=== PATIENT | male | born 1935 | race Caucasian/White ===

== ENCOUNTER 2017-12-12 09:04 | Observation (INO) ==
[2017-12-12] MEDS ORDERED: HALOPERIDOL 5 MG/ML INJECTION IVP ONE (09:11)
[2017-12-12] MEDS: SALINE FLUSH 10ml SYRINGE IVF PRN ×4 (09:14→11:54)
--- NOTE | 2017-12-12 09:30 | Emergency Department Report ---
General Adult HPI - General Chief complaint: Medical Emergency Stated complaint: Combative, diabetic Time Seen by Provider: 12/12/17 09:11 - History of Present Illness HPI narrative: 82-year-old gentleman brought in with acute confusion and delirium. He was initially diagnosis hypoglycemic with a blood sugar of 64 and EMS was given permission to supplement with 1 amp of D50 IV. Blood sugar increased to 230 but his behavior did not improve. On arrival to the ED he is strapped down and thrashing in the gurney. He is unaware of where he is or what is being done for him. No recent history is available and patient is unable to cooperate with us when we ask questions. He has had history of hypoglycemia, was never been combative with it. No fevers or chills, did not act sick previous to this according to his . - Related Data Home Medications Medication Instructions Recorded Confirmed sotalol 80 mg tablet 80 mg PO BID tab 06/23/17 12/12/17 Lisinopril [Prinivil] 20 mg PO BID 12/12/17 12/12/17 Metoprolol Tartrate 100 mg PO BID 12/12/17 12/12/17 Quetiapine [Seroquel] 50 mg PO HS 12/12/17 12/12/17 Previous Rx's Medication Instructions Recorded Calcitonin Nasal [place] [Miacalcin 1 spray NS DAILY bottle 12/14/17 [place]] Insulin Aspart [Novolog Flexpen] 1 dose SQ TIDWM #0 12/14/17 Insulin Glargine,Hum.rec.anlog 80 unit SQ HS #0 ml 12/14/17 [Toujeo Solostar] Levothyroxine Tab [Synthroid] 137 mcg PO ACB #30 tab 12/14/17 Simvastatin 40 mg PO HS #0 12/14/17 Allergies Allergy/AdvReac Type Severity Reaction Status Date / Time niacin Allergy Unknown RASH Verified 12/12/17 09:49 tramadol AdvReac Severe Delirium Verified 12/13/17 15:53 Review of Systems Limitations: ROS unobtainable due to patient's medical condition [facility] Patient Stated Medical History Hypertension Yes Myocardial Infarction No Diabetes Mellitus Type 1 No Diabetes Mellitus Type 2 Yes Gastroesophageal Reflux Yes Disease Ulcer Yes Clinic Medical History (Last Reviewed 10/21/17 @ 09:12 by SARAY Donovan) Diabetes mellitus type 2, controlled (Chronic Medical ~1996) Good control with some hypoglycemia. Diabetic peripheral neuropathy associated with type 2 diabetes mellitus ( Chronic Medical) Mild and improved. CKD (chronic kidney disease) stage 3, GFR 30-59 ml/min (Chronic Medical) Hyperlipidemia LDL goal <100 (Chronic Medical) on Zocor per Dr. Jensen. Hypertension (Chronic Medical) Good control. Postsurgical hypothyroidism (Chronic Medical ~2009) Clinically euthyroid. Need to reassess low thyroid hormone level. Obesity (BMI 30-39.9) (Chronic Medical) Little better. Surgical History: cholecystectomy, heart stent, pacemaker, colon surgery, prostate surgery, thyroidectomy Family History: Family History (Last Reviewed 10/21/17 @ 09:12 by Sendy Wells [facility]) Mother High blood pressure Father Heart disease Stroke - Social History Smoking status: Former smoker Substance use type: does not use Alcohol intake: former Physical Exam - Limitations Limitations: altered mental status - General General appearance: anxious, in distress - Normal Exams: Head:: Normocephalic without trauma Chest/Respirations:: Clear all reyna, with good airflow, and symmetry bilaterally Cardiovascular:: Regular rate and rhythm, without murmur or gallop, Pulses 2+ all extremities, capillary refill, <2 seconds all extremities Abdomen:: Bowel sounds positive, soft, non-tender, non-distended, no hepatosplenomegaly, masses or bruits noted - Neurological Exam Neurological exam: Present: other (patient alert, but oriented 0. Aggressive and kicking. This is not aimed at anyone in particular.) Course Vital Signs Temperature 98.2 F 12/12/17 09:04 Pulse Rate 135 H 12/12/17 09:04 Respiratory Rate 34 H 12/12/17 09:04 Blood Pressure 122/86 12/12/17 09:04 Pulse Oximetry 99 12/12/17 09:04 Temperature 96.5 F L 12/14/17 07:53 Pulse Rate 78 12/14/17 09:06 Respiratory Rate 26 H 12/14/17 07:53 Blood Pressure 163/84 H 12/14/17 07:53 Pulse Oximetry 97 12/14/17 07:53 Medical Decision Making - MDM Narrative Medical decision making narrative: Peripheral IV was started prior to arrival, patient was given 1 amp of dextrose at home by EMS. Glucose did improve with his first dose, however on arrival to ED it did not stay above 100. He did require a second amp of D50 as well as D5 IV fluid. Labs obtained as well as blood cultures and CT head and chest x-ray. CT head and chest x-ray negative. 2 mg Ativan and 5 mg of Haldol given IV, patient continued to be combative despite this. He was given a repeat of 2 mg Ativan which did help. At time of CT head, he required ketamine total of 150 g was given. This did sedate him well enough that we're able to get reasonable CT head. Patient required 4. restraints for his own safety and to keep him from falling out of bed or being otherwise injured. These were checked carefully ensuring patient had appropriate circulation and no damage was being done to him. White count is 12.1, sodium 147 and creatinine 1.8. Total osmolality was also elevated. Shop Lead should have accounted for his mental status changes , we did contact hospitalist. Hospice agreed to admit him for continued care and workup in regards to encephalopathy, hypernatremia, renal insufficiency and hypoglycemia - Medical Records Medical records reviewed: Yes: I reviewed the patient's medical records. - Lab Data Lab results reviewed: Yes: I reviewed the patient's lab results. Result diagrams: 12/14/17 04:23 12/14/17 04:23 Lab Results 12/12/17 12/12/17 12/12/17 Range/Units 09:21 09:50 10:34 WBC 12.1 H (4.5-11.0) T/MM3 RBC 5.04 (4.50-5.90) M/MM3 Hgb 15.6 (13.5-17.5) GM/DL Hct 46.7 (41-53) % MCV 92.7 (80-100) UM3 MCH 31.0 (26-34) UUG MCHC 33.4 (31-37) GM/DL RDW Std Deviation 46.1 (36.9-50.2) FL Plt Count 156 (130-400) T/MM3 MPV 11.7 (9.4-12.4) UM3 Immature Gran % (Auto) 0.2 (0.0-0.5) % Neut % (Auto) 71.4 H (33-66) % Lymph % (Auto) 18.1 L (23-45) % [place] % (Auto) 8.9 (0-9.0) % Eos % (Auto) 1.2 (0-4) % Baso % (Auto) 0.2 (0-2) % Neut # (Auto) 8.6 H (1.8-7.7) T/MM3 Lymph # (Auto) 2.2 (1-4.8) T/MM3 [place] # (Auto) 1.1 H (0-0.8) T/MM3 Eos # (Auto) 0.1 (0-0.5) T/MM3 Baso # (Auto) 0.0 (0-0.2) T/MM3 Abs Immat Gran (auto) 0.03 (0.00-0.03) T/MM3 Turbidity (0-20) Sodium (134-144) MEQ/L Potassium (3.6-5) MEQ/L Chloride (98-107) MEQ/L Carbon Dioxide (22-30) MEQ/L Anion Gap (5-15) MEQ/L BUN (9-20) MG/DL Creatinine (0.8-1.5) mg/dL GFR Calculation BUN/Creatinine Ratio (6-26) RATIO Glucose (75-110) MG/DL Glucometer 138 153 (65-110) mg/dL Calculated Osmolality (261-280) MOSM/KG Calcium (8.4-10.2) MG/DL Total Bilirubin (0.20-1.30) MG/DL Icterus Index (0-7) AST (17-59) U/L ALT (1-50) U/L Alkaline Phosphatase (38-126) U/L Ammonia (9-33) umol/L Troponin I (0-0.12) ng/ml Total Protein (6.3-8.2) g/dL Albumin (3.5-5.0) g/dL Globulin (2.4-3.6) G/DL Albumin/Globulin Ratio (1.1-2.2) RATIO TSH (0.47-4.68) miu/L Specimen Hemolysis (0-25) Ur Collection Type Urine Color (YELLOW) Urine Clarity Urine pH (5.0-8.0) Ur Specific [place] (1.015-1.025) Urine Protein (NEGATIVE) Urine Glucose (UA) (NEGATIVE) Urine Ketones (NEGATIVE) Urine Occult Blood (NEGATIVE) Urine Nitrate (NEGATIVE) Urine Bilirubin (NEGATIVE) Urine Urobilinogen (NORMAL) EU/DL Ur Leukocyte Esterase (NEGATIVE) Urine RBC (0-3) /HPF Urine WBC (0-5) /HPF Amorphous Sediment Urine Bacteria (NEGATIVE) Hyaline Casts /LPF Ur Culture Indicated? Salicylates (2-20) MG/DL Urine Opiates Screen ng/mL Ur Oxycodone Screen ng/mL Urine Methadone Screen ng/mL Ur Propoxyphene Screen ng/mL Acetaminophen (10-30) UG/ML Ur Barbiturates Screen ng/mL U Tricyclic Antidepress ng/mL Ur Phencyclidine Scrn ng/mL Ur Amphetamines Screen ng/mL U Methamphetamines Scrn ng/mL U Benzodiazepines Scrn ng/mL Urine Cocaine Screen ng/mL U Cannabinoids Screen ng/mL Ur Drug Screen Confirm Alcohol, Quantitative (<10) mg/dL 12/12/17 12/12/17 12/12/17 Range/Units 10:34 11:06 12:19 WBC (4.5-11.0) T/MM3 RBC (4.50-5.90) M/MM3 Hgb (13.5-17.5) GM/DL Hct (41-53) % MCV (80-100) UM3 MCH (26-34) UUG MCHC (31-37) GM/DL RDW Std Deviation (36.9-50.2) FL Plt Count (130-400) T/MM3 MPV (9.4-12.4) UM3 Immature Gran % (Auto) (0.0-0.5) % Neut % (Auto) (33-66) % Lymph % (Auto) (23-45) % [place] % (Auto) (0-9.0) % Eos % (Auto) (0-4) % Baso % (Auto) (0-2) % Neut # (Auto) (1.8-7.7) T/MM3 Lymph # (Auto) (1-4.8) T/MM3 [place] # (Auto) (0-0.8) T/MM3 Eos # (Auto) (0-0.5) T/MM3 Baso # (Auto) (0-0.2) T/MM3 Abs Immat Gran (auto) (0.00-0.03) T/MM3 Turbidity < 20 (0-20) Sodium 147 H (134-144) MEQ/L Potassium 3.9 (3.6-5) MEQ/L Chloride 111 H (98-107) MEQ/L Carbon Dioxide 21 L (22-30) MEQ/L Anion Gap 15 (5-15) MEQ/L BUN 20.0 (9-20) MG/DL Creatinine 1.8 H (0.8-1.5) mg/dL GFR Calculation 36 BUN/Creatinine Ratio 11 (6-26) RATIO Glucose 119 H (75-110) MG/DL Glucometer 97 (65-110) mg/dL Calculated Osmolality 286 H (261-280) MOSM/KG Calcium 8.9 (8.4-10.2) MG/DL Total Bilirubin 2.70 H (0.20-1.30) MG/DL Icterus Index < 2 (0-7) AST 35 (17-59) U/L ALT 25 (1-50) U/L Alkaline Phosphatase 81 (38-126) U/L Ammonia < 9 L (9-33) umol/L Troponin I 0.025 (0-0.12) ng/ml Total Protein 7.3 (6.3-8.2) g/dL Albumin 4.1 (3.5-5.0) g/dL Globulin 3.2 (2.4-3.6) G/DL Albumin/Globulin Ratio 1.3 (1.1-2.2) RATIO TSH 5.07 H (0.47-4.68) miu/L Specimen Hemolysis < 15 (0-25) Ur Collection Type Urine, cath straight Urine Color Yellow (YELLOW) Urine Clarity Clear Urine pH 5.0 (5.0-8.0) Ur Specific [place] >=1.030 H (1.015-1.025) Urine Protein 2+ A (NEGATIVE) Urine Glucose (UA) Negative (NEGATIVE) Urine Ketones Negative (NEGATIVE) Urine Occult Blood Trace-lysed (NEGATIVE) Urine Nitrate Negative (NEGATIVE) Urine Bilirubin Negative (NEGATIVE) Urine Urobilinogen 0.2 (NORMAL) EU/DL Ur Leukocyte Esterase Negative (NEGATIVE) Urine RBC 0-1 (0-3) /HPF Urine WBC 0-1 (0-5) /HPF Amorphous Sediment Few Urine Bacteria Trace H (NEGATIVE) Hyaline Casts 0-1 /LPF Ur Culture Indicated? Cult not indicated Salicylates < 1.0 L (2-20) MG/DL Urine Opiates Screen ng/mL Ur Oxycodone Screen ng/mL Urine Methadone Screen ng/mL Ur Propoxyphene Screen ng/mL Acetaminophen < 10 L (10-30) UG/ML Ur Barbiturates Screen ng/mL U Tricyclic Antidepress ng/mL Ur Phencyclidine Scrn ng/mL Ur Amphetamines Screen ng/mL U Methamphetamines Scrn ng/mL U Benzodiazepines Scrn ng/mL Urine Cocaine Screen ng/mL U Cannabinoids Screen ng/mL Ur Drug Screen Confirm Alcohol, Quantitative <10 (<10) mg/dL 12/12/17 12/12/17 12/12/17 Range/Units 12:19 12:19 12:48 WBC (4.5-11.0) T/MM3 RBC (4.50-5.90) M/MM3 Hgb (13.5-17.5) GM/DL Hct (41-53) % MCV (80-100) UM3 MCH (26-34) UUG MCHC (31-37) GM/DL RDW Std Deviation (36.9-50.2) FL Plt Count (130-400) T/MM3 MPV (9.4-12.4) UM3 Immature Gran % (Auto) (0.0-0.5) % Neut % (Auto) (33-66) % Lymph % (Auto) (23-45) % [place] % (Auto) (0-9.0) % Eos % (Auto) (0-4) % Baso % (Auto) (0-2) % Neut # (Auto) (1.8-7.7) T/MM3 Lymph # (Auto) (1-4.8) T/MM3 [place] # (Auto) (0-0.8) T/MM3 Eos # (Auto) (0-0.5) T/MM3 Baso # (Auto) (0-0.2) T/MM3 Abs Immat Gran (auto) (0.00-0.03) T/MM3 Turbidity (0-20) Sodium (134-144) MEQ/L Potassium (3.6-5) MEQ/L Chloride (98-107) MEQ/L Carbon Dioxide (22-30) MEQ/L Anion Gap (5-15) MEQ/L BUN (9-20) MG/DL Creatinine (0.8-1.5) mg/dL GFR Calculation BUN/Creatinine Ratio (6-26) RATIO Glucose (75-110) MG/DL Glucometer 64 (65-110) mg/dL Calculated Osmolality (261-280) MOSM/KG Calcium (8.4-10.2) MG/DL Total Bilirubin (0.20-1.30) MG/DL Icterus Index (0-7) AST (17-59) U/L ALT (1-50) U/L Alkaline Phosphatase (38-126) U/L Ammonia (9-33) umol/L Troponin I (0-0.12) ng/ml Total Protein (6.3-8.2) g/dL Albumin (3.5-5.0) g/dL Globulin (2.4-3.6) G/DL Albumin/Globulin Ratio (1.1-2.2) RATIO TSH (0.47-4.68) miu/L Specimen Hemolysis (0-25) Ur Collection Type Urine Color (YELLOW) Urine Clarity Urine pH (5.0-8.0) Ur Specific [place] (1.015-1.025) Urine Protein (NEGATIVE) Urine Glucose (UA) (NEGATIVE) Urine Ketones (NEGATIVE) Urine Occult Blood (NEGATIVE) Urine Nitrate (NEGATIVE) Urine Bilirubin (NEGATIVE) Urine Urobilinogen (NORMAL) EU/DL Ur Leukocyte Esterase (NEGATIVE) Urine RBC (0-3) /HPF Urine WBC (0-5) /HPF Amorphous Sediment Urine Bacteria (NEGATIVE) Hyaline Casts /LPF Ur Culture Indicated? Salicylates (2-20) MG/DL Urine Opiates Screen Positive ng/mL Ur Oxycodone Screen Negative ng/mL Urine Methadone Screen Negative ng/mL Ur Propoxyphene Screen Negative ng/mL Acetaminophen (10-30) UG/ML Ur Barbiturates Screen Negative ng/mL U Tricyclic Antidepress Positive ng/mL Ur Phencyclidine Scrn Negative ng/mL Ur Amphetamines Screen Negative ng/mL U Methamphetamines Scrn Negative ng/mL U Benzodiazepines Scrn Negative ng/mL Urine Cocaine Screen Negative ng/mL U Cannabinoids Screen Negative ng/mL Ur Drug Screen Confirm Sent out Alcohol, Quantitative (<10) mg/dL 12/12/17 12/12/17 12/12/17 Range/Units 13:22 13:45 14:08 WBC (4.5-11.0) T/MM3 RBC (4.50-5.90) M/MM3 Hgb (13.5-17.5) GM/DL Hct (41-53) % MCV (80-100) UM3 MCH (26-34) UUG MCHC (31-37) GM/DL RDW Std Deviation (36.9-50.2) FL Plt Count (130-400) T/MM3 MPV (9.4-12.4) UM3 Immature Gran % (Auto) (0.0-0.5) % Neut % (Auto) (33-66) % Lymph % (Auto) (23-45) % [place] % (Auto) (0-9.0) % Eos % (Auto) (0-4) % Baso % (Auto) (0-2) % Neut # (Auto) (1.8-7.7) T/MM3 Lymph # (Auto) (1-4.8) T/MM3 [place] # (Auto) (0-0.8) T/MM3 Eos # (Auto) (0-0.5) T/MM3 Baso # (Auto) (0-0.2) T/MM3 Abs Immat Gran (auto) (0.00-0.03) T/MM3 Turbidity (0-20) Sodium (134-144) MEQ/L Potassium (3.6-5) MEQ/L Chloride (98-107) MEQ/L Carbon Dioxide (22-30) MEQ/L Anion Gap (5-15) MEQ/L BUN (9-20) MG/DL Creatinine (0.8-1.5) mg/dL GFR Calculation BUN/Creatinine Ratio (6-26) RATIO Glucose (75-110) MG/DL Glucometer 58 59 138 (65-110) mg/dL Calculated Osmolality (261-280) MOSM/KG Calcium (8.4-10.2) MG/DL Total Bilirubin (0.20-1.30) MG/DL Icterus Index (0-7) AST (17-59) U/L ALT (1-50) U/L Alkaline Phosphatase (38-126) U/L Ammonia (9-33) umol/L Troponin I (0-0.12) ng/ml Total Protein (6.3-8.2) g/dL Albumin (3.5-5.0) g/dL Globulin (2.4-3.6) G/DL Albumin/Globulin Ratio (1.1-2.2) RATIO TSH (0.47-4.68) miu/L Specimen Hemolysis (0-25) Ur Collection Type Urine Color (YELLOW) Urine Clarity Urine pH (5.0-8.0) Ur Specific [place] (1.015-1.025) Urine Protein (NEGATIVE) Urine Glucose (UA) (NEGATIVE) Urine Ketones (NEGATIVE) Urine Occult Blood (NEGATIVE) Urine Nitrate (NEGATIVE) Urine Bilirubin (NEGATIVE) Urine Urobilinogen (NORMAL) EU/DL Ur Leukocyte Esterase (NEGATIVE) Urine RBC (0-3) /HPF Urine WBC (0-5) /HPF Amorphous Sediment Urine Bacteria (NEGATIVE) Hyaline Casts /LPF Ur Culture Indicated? Salicylates (2-20) MG/DL Urine Opiates Screen ng/mL Ur Oxycodone Screen ng/mL Urine Methadone Screen ng/mL Ur Propoxyphene Screen ng/mL Acetaminophen (10-30) UG/ML Ur Barbiturates Screen ng/mL U Tricyclic Antidepress ng/mL Ur Phencyclidine Scrn ng/mL Ur Amphetamines Screen ng/mL U Methamphetamines Scrn ng/mL U Benzodiazepines Scrn ng/mL Urine Cocaine Screen ng/mL U Cannabinoids Screen ng/mL Ur Drug Screen Confirm Alcohol, Quantitative (<10) mg/dL - Radiology Data Radiology results reviewed: Yes: I reviewed the patient's radiology results. Disposition Clinical Impression: HYPOGLYCEMIA Disposition: 02 To [facility] Condition: Stable Time of Disposition: 08:05 - Seen By: physician
[2017-12-12] MEDS ORDERED: MORPHINE SULFATE 2mg INJ IVP ONE (10:21)
[2017-12-12] MEDS ORDERED: MORPHINE SULFATE 4mg INJECTION IVP ONE (10:45)
[2017-12-12] MEDS ORDERED: KETAMINE 500 MG/10 ML INJECTION IVP ONE (11:23)
[2017-12-12] MEDS ORDERED: HALOPERIDOL 5 MG/ML INJECTION IVP PRN ×2 (11:23→15:22)
[2017-12-12] MEDS ORDERED: NS 1,000 ML IV ONE (12:21)
[2017-12-12] MEDS ORDERED: D5NS 1,000 ML IV SCH (13:00)
[2017-12-12] MEDS ORDERED: DEXTROSE 50% SYRINGE 50ml (1 AMP) IVP ONE (13:46)
[2017-12-12] MEDS: ENOXAPARIN 40 MG/0.4 ML INJECTION SQ SCH (15:15)
[2017-12-12] MEDS ORDERED: 1/2 NS 1,000 ML IV SCH (15:22)
[2017-12-12] MEDS ORDERED: BISACODYL 10 MG SUPPOSITORY RECTALLY PRN (15:22)
[2017-12-12] MEDS ORDERED: ACETAMINOPHEN 325 MG TABLET PO PRN (15:22)
[2017-12-12 15:34] VITALS: BMI 33.7
--- NOTE | 2017-12-12 15:50 | History & Physical Report ---
History of Present Illness Date: 12/12/17 Chief complaint: acute encephalopathy HPI: Drake is an 82-year-old male who resides independently at home with his , Basilia. This morning at approximately 830 a.m. she found him to be standing in the room, confused and unable to answer verbal questioning. She was concerned that he was hypoglycemic and called EMS, they found patient to have a blood sugar of 64. EMS gave patient one amp of dextrose blood sugar improved to 233, however patient remained combative. He was then transferred to [facility] emergency room for further medical evaluation and treatment. Laboratory studies were obtained, patient found have mild leukocytosis with white count at 12.1. Chemistry panel reviewed hypernatremia, sodium of 147, potassium 3.9, creatinine 1.8. While in the emergency room. Glucose did dip down to 58 and patient received another amp of dextrose. Troponin was negative, TSH 5.04. Urinalysis is unremarkable. Toxicology is positive for opiates and tricyclic antidepressants. CT scan of the head showed no intracranial abnormalities or hemorrhages, chest x-ray is unremarkable Patient received multiple medications well in the emergency room including Ativan 4 milligrams, Haldol 2 milligrams, morphine 2 milligrams, ketamine 100 milligrams. Given continued encephalopathy and combativeness , the hospitalist services were contacted and accepted patient for outpatient admission for further evaluation and treatment. Additional history is obtained from at the bedside. She does report that patient has had difficulty with managing his blood sugars over the last week or 2 having hypoglycemia at times. Last Thursday (12/07/17) during the night he fell and has complained of low back pain since that time. He did have outpatient x- rays done yesterday that revealed a T12 - L2 compression fracture. He was started on tramadol for pain control by primary care, Dr. Aguayo. thinks that patient took 2 tablets for pain control since having them filled yesterday. Patient is normally alert, oriented and manages all his own medications at home, is in clear of what medications he takes and for what chronic problems. reports he does have some "mood swings" and she does relate this to potential hypoglycemic episodes. We did discuss advanced directives and patient does wish to be a full code unless he would be in a vegetative state at which time she would opt for him to be a do not resuscitate Review of Systems ROS unobtainable: due to mental status Past Medical History Clinic Medical History Type II diabetes. Peripheral neuropathy. Chronic kidney disease-stage III Hypertension Hyperlipidemia Keratosis Postsurgical hypothyroidism History of prostate cancer History of colon cancer. Surgical History: cholecystectomy -1997. heart stent. pacemaker 2004-Dr. Jensen. thyroidectomy-2009. TURP-2012. Right [id number] Family History Updates: Mother. High blood pressure. Father. Heart disease. 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 Medications Home Medications Medication Instructions Recorded Confirmed Type Toujeo Solostar (insulin glargine) 100 unit SQ HS ml 06/23/17 12/12/17 History 300 unit/mL (1.5 mL) SQ PEN saxagliptin 2.5 mg tablet 2.5 mg PO QAM 06/23/17 12/12/17 History sotalol 80 mg tablet 80 mg PO BID tab 06/23/17 12/12/17 History levothyroxine 125 mcg tablet 125 mcg PO QAM #90 tab 07/06/17 12/12/17 Rx Novolog FlexPen (insulin aspart) 1 dose SQ TIDWM 10/21/17 12/12/17 History 100 unit/mL PEN Lisinopril [Prinivil] 20 mg PO BID 12/12/17 12/12/17 History Metoprolol Tartrate [Metoprolol 100 mg PO BID 12/12/17 12/12/17 History Tartrate] Quetiapine [Seroquel] 50 mg PO HS 12/12/17 12/12/17 History Simvastatin [Simvastatin] 40 mg PO DAILY 12/12/17 12/12/17 History Tramadol [Ultram] 50 mg PO Q6H PRN 12/12/17 12/12/17 History Allergies Allergy/AdvReac Type Severity Reaction Status Date / Time niacin Allergy Unknown RASH Verified 12/12/17 09:49 Exam Vital Signs: Temperature 96 F L 12/12/17 15:22 Pulse Rate 84 12/12/17 15:22 Respiratory Rate 16 12/12/17 15:22 Blood Pressure 153/70 H 12/12/17 15:22 Pulse Oximetry 94 12/12/17 15:22 Height/Weight/BMI: Height 1.78 m Weight 106.7 kg Body Mass Index 33.7 - Constitutional Present: well nourished, well developed, combative, agitated - Routine HEENT Exam Eye: Present: EOMI ENT: Present: mucous membranes moist, dentition normal - Routine Respiratory Exam Present: CTA bilaterally. Absent: wheezes - Routine Cardiovascular Exam Present: RRR, S1, S2. Absent: murmur - Routine Abdominal Exam Present: soft, normoactive bowel sounds, non distended. Absent: tenderness - Routine Extremities Exam Present: edema - Routine Back/Spine/Pelvis Exam Back/Spine: Present: full ROM - Routine Skin Exam Present: intact, dry, warm Comments: Ecchymosis noted to right shoulder, left hand and forearm - Routine Neurological Exam Present: alert, CN II-XII intact, altered mental status, moving all extremities - Routine Psychiatric Exam Present: agitated Results - Labs CBC & Chem 7: 12/12/17 10:34 12/12/17 10:34 Assessment and Plan (1) Encephalopathy Current visit: Yes Status: Acute Assessment and Plan: Impression Acute encephalopathy with unknown etiology Hypoglycemia Hypernatremia (POA) Recent fall T12-L2 compression fracture Type II diabetes Coronary artery disease Hypertension Dyslipidemia Stage III CKD Keratosis Obesity with BMI 33.8 Plan Initially, will admit patient outpatient observation under care of Dr. Slaughter for acute encephalopathy with unknown etiology. Suspect etiology could be multifactorial. May be related to dehydration, initiation of pain medication as patient did start tramadol yesterday 12/11 for back pain. It is unclear if patient has been taking his medications accurately. May be related to underlying cognitive decline. Will plan to hold off on Onglyza as this may be causing hypoglycemia. Also hold on insulin. Will monitor Accu-Cheks closely. At time of admission patient continues to be quite combative during examination and nursing cares. Haldol and Ativan available as needed. Suspect he will require one-on-one staffing for patient safety. Unfortunately, we are unable to obtain an MRI of the brain to rule out intracranial infarct given. Patient does have a pacemaker. Once further medical rule out has been completed. May need to consider obtaining durable power of medical billing supervisor which is . Will hold off Ultram as this may be causing Encephalopathy. SCDs to bilateral lower extremity for DVT prophylaxis. Will check CBC, BMP, hemoglobin A1c tomorrow morning to follow blood counts, renal function and electrolytes. Will discuss further orders and plan of care with attending, Dr. Slaughter. At time of discharge medical care will return to primary care provider, Dr Aguayo. DVT Prophylaxis: SCD's Resuscitation Status: Full Code - Time spent with patient Time with patient PN: 50 minutes - Physician Narrative Physician: Arden Slaughter MD Narrative: Date: 12/12/17 Time: 1654 Have independently interviewed and examined pt. Chart reviewed. Case discussed with ED physician and my ARCHITECTURAL PROJECT MANAGER. Care plan developed with my supervision; agree with above. Presents to ED via EMS secondary to alteration of mentation. Increase confusion this am. Blood sugar low on scene by EMS. In ED, patient very restless and agitated-required multiple doses of medication to calm him down. Does have Type II DM on insulin at high doses. Recent back injury and started on tramadol. At time of my visit, pt resting comfortably in bed. Little verbal interaction. Nursing reports pt had just been up to urinate-he needed to urinate, but not able to produce urine. Gait was unsteady, requiring gait belt. Lung: decreased, no crackles/wheezes/distress CV: regular EXT: no edema. Plan: OBS status. Hold on glycemic medications do to significant hypoglycemia. Hold tramadol as may be source of encephalopathy. D51/2NS for hydration and to help with blood sugars. Monitor sugars closely. Haldol/lorazepam prn. Provide safe supportive environment. Monitor lab. Multiple factors could be contributing to encephalopathy - low blood sugars, elevated serum sodium, tramadol use. Hospital Course Summary Disclaimer: The visit summary below is not to be considered part of the above Progress Note. Hospital Course: 12/12/[address] patient in outpatient observation under care of Dr. Slaughter for acute encephalopathy with unknown etiology. Suspect etiology could be multifactorial. May be related to dehydration, initiation of pain medication as patient did start tramadol yesterday 12/11 for back pain. It is unclear if patient has been taking his medications accurately. May be related to underlying cognitive decline. Will plan to hold off on Onglyza as this may be causing hypoglycemia. Also hold on insulin. Will monitor Accu-Cheks closely. At time of admission patient continues to be quite combative during examination and nursing cares. Haldol and Ativan available as needed. Suspect he will require one-on-one staffing for patient safety. Unfortunately, we are unable to obtain an MRI of the brain to rule out intracranial infarct given. Patient does have a pacemaker. Once further medical rule out has been completed. May need to consider obtaining durable power of medical billing supervisor which is . Will hold off Ultram as this may be causing encephalopathy. SCDs to bilateral lower extremity for DVT prophylaxis. Will check CBC, BMP, hemoglobin A1c tomorrow morning to follow blood counts, renal function and electrolytes. At time of discharge medical care will return to primary care provider, Dr Aguayo.
[2017-12-12] MEDS ORDERED: DEXTROSE 50% SYRINGE 50ml (1 AMP) IVP PRN (16:14)
[2017-12-12] MEDS: D5-1/2NS 1,000 ML IV SCH (17:03)
[2017-12-12] MEDS: SOTALOL 80 MG PO SCH (22:26)
[2017-12-12] MEDS: --POM--QUETIAPINE 50 MG TABLET PO SCH (22:26)
[2017-12-12] MEDS: --POM--LISINOPRIL 20 MG TABLET PO SCH (22:26)
[2017-12-13] MEDS: D5-1/2NS 1,000 ML IV SCH ×4 (00:14→23:57)
[2017-12-13] MEDS ORDERED: VANCOMYCIN - PHARMACY CONSULT MC ONE (06:02)
[2017-12-13] MEDS: --POM--SIMVASTATIN 40 MG TABLET PO SCH ×2 (06:42→20:57)
[2017-12-13] MEDS: --POM--LEVOTHYROXINE 125 MCG TABLET PO SCH (06:59)
--- NOTE | 2017-12-13 07:10 | Pharmacy Consult-Antibiotics ---
Pharmacy Consult-Vancomycin - Laboratory Information WBC 8.4 T/MM3 (4.5-11.0) 12/13/17 05:02 BUN 18.0 MG/DL (9-20) 12/13/17 05:02 Creatinine 1.5 mg/dL (0.8-1.5) D 12/13/17 05:02 - Consult Information VANCOMYCIN CONSULT: Dx: Blood culture positive for staph Current Renal Fx: SCr = 1.5mg/dl. Loading dose of 1.75gm then give Vancomycin 1,500mg IV q24hrs. Will continue to monitor and adjust regimen to maintain therapeutic levels. Thank you.
--- NOTE | 2017-12-13 09:06 | CT Scan Report ---
Indication: confusion PROCEDURE: CT head/brain wo con: Encounter: Initial Comparison: None Technique: Axial CT images through the head were performed without contrast. Iterative Reconstruction dose reducing technique was utilized. FINDINGS: Mild generalized atrophy. The ventricles are of normal size, shape, and contour for the patient's age. There are scattered areas of low attenuation in the white matter which most likely represent changes from chronic microvascular ischemia. The brainstem, cerebellum, and cerebral hemispheres otherwise have a normal morphology and CT attenuation. There is no evidence of midline displacement. No hemorrhage, signs of acute territorial stroke, mass effect, mass lesions, or edema is evident. The visualized portions of the skull base, midface, and calvarium demonstrate no abnormality. The paranasal sinuses are well aerated and free of significant disease. The tympanic and mastoid cavities appear normal. IMPRESSION: No acute intracranial abnormality or hemorrhage. There is a preliminary report by [facility]. .
--- NOTE | 2017-12-13 09:06 | XRay Report ---
Indication: confusion PROCEDURE: XR chest 1V: Encounter: Initial Comparison: Chest CT dated May 26, 2013 FINDINGS: The lungs are clear. There is no abnormal airspace opacity, pleural effusion or pneumothorax identified. The heart size and mediastinum are stable with a left pacemaker. IMPRESSION: No acute cardiopulmonary abnormality. .
--- NOTE | 2017-12-13 09:51 | Progress Note ---
- Date 12/13/17 Subjective: Clovis is seen this morning in follow up for encephalopathy. He is alert and orientated this morning and reports that he "blacked out" yesterday. He remembers taking the second Tramadol for back pain and states he does not remember any events following that. He is without complaints of pain currently. Noted to have lots of ecchymosis on his arms from falling and aggression. Large bowel movement this morning. Objective Vital signs: Temperature 96.2 F L 12/13/17 07:17 Pulse Rate 78 12/13/17 07:17 Respiratory Rate 20 12/13/17 07:17 Blood Pressure 157/77 H 12/13/17 07:17 Pulse Oximetry 95 12/13/17 07:17 Height/Weight/BMI: Height 1.78 m Weight 108.9 kg Body Mass Index 33.7 - Constitutional Present: no acute distress, well nourished, well developed - Routine HEENT Exam Eye: Present: EOMI ENT: Present: mucous membranes moist, dentition normal - Routine Respiratory Exam Present: CTA bilaterally. Absent: wheezes - Routine Cardiovascular Exam Present: RRR, S1, S2. Absent: murmur - Routine Abdominal Exam Present: soft, normoactive bowel sounds, non distended. Absent: tenderness - Routine Extremities Exam Present: full ROM - Routine Back/Spine/Pelvis Exam Back/Spine: Present: full ROM - Routine Skin Exam Present: intact, dry, warm - Routine Neurological Exam Present: alert, oriented X3, CN II-XII intact, moving all extremities - Routine Lymphatic Exam Lymphatic: Absent: adenopathy - Routine Psychiatric Exam Present: normal affect, cooperative Results - Labs CBC & Chem 7: 12/13/17 05:02 12/13/17 05:02 Assessment and Plan (1) Encephalopathy Current visit: Yes Status: Acute Assessment and Plan: Impression Acute encephalopathy with unknown etiology Hypoglycemia Hypernatremia (POA) Hypokalemia- not POA Recent fall T12-L2 compression fracture Type II diabetes Coronary artery disease Hypertension Dyslipidemia Stage III CKD Keratosis Obesity with BMI 33.8 Plan Encephalopathy appears to be improving. Patient contributes to taking Ultram. One blood culture is growing Staph Aureus. Will re-draw blood cultures now. Was started on Vancomycin IV. Continue to avoid Ultram as it appears patient had a significant adverse reaction. Will use Tylenol for pain control Continue to monitor blood sugars as he continues to be low. Continue on D5 1/2 IV fluids. All home diabetes medications and insulin remain on hold. Encourage PO intake. Continue to follow electrolytes Overall mentation appears to be improving Case discussed with attending, Dr Slaughter DVT Prophylaxis: SCD's, Lovenox Resuscitation Status: Full Code - Time spent with patient Time with patient PN: 25 minutes - Physician Narrative Physician: Arden Slaughter MD Narrative: Date: 12/13/17 Time: 1155 Have independently interviewed and examined pt. Chart reviewed. Case discussed with CM, Family and my MACHINING MANAGER. Care plan developed with my supervision; agree with above. Doing much better today-awake, alert, communicating well. Remembers he 'blacked out' yesterday. Breathing well. No nausea. Blood sugars on low side, but not as low as on scene or in ED. Reports BS very well controlled at home-sometimes needs to decrease his insulin. Lung: clear CV: regular AB: soft nt MSE: awake alert appropriate Plan: One of two BC positive for Staph aureus - uncertain if this is truly indicative of infection--more likely contaminant; Vanco started by Telehospitalist, repeat BC drawn. Improvement of encephalopathy encouraging- suspect was combination of tramadol and hypoglycemia. Will start Miacalcin to help pain. PT/OT evaluation tomorrow to assess functional status. Will consult with Dr Mendiola in light of low sugars--home glycemic medications currently on hold. Will continue with care and monitoring. Hospital Course Summary Disclaimer: The visit summary below is not to be considered part of the above Progress Note. Hospital Course: 12/12/[address] patient in outpatient observation under care of Dr. Slaughter for acute encephalopathy with unknown etiology. Suspect etiology could be multifactorial. May be related to dehydration, initiation of pain medication as patient did start tramadol yesterday 12/11 for back pain. It is unclear if patient has been taking his medications accurately. May be related to underlying cognitive decline. Will plan to hold off on Onglyza as this may be causing hypoglycemia. Also hold on insulin. Will monitor Accu-Cheks closely. At time of admission patient continues to be quite combative during examination and nursing cares. Haldol and Ativan available as needed. Suspect he will require one-on-one staffing for patient safety. Unfortunately, we are unable to obtain an MRI of the brain to rule out intracranial infarct given. Patient does have a pacemaker. Once further medical rule out has been completed. May need to consider obtaining durable power of biotech production specialist which is . Will hold off Ultram as this may be causing encephalopathy. SCDs to bilateral lower extremity for DVT prophylaxis. Will check CBC, BMP, hemoglobin A1c tomorrow morning to follow blood counts, renal function and electrolytes. At time of discharge medical care will return to primary care provider, Dr Aguayo. 12/13/17 Encephalopathy appears to be improving. Patient contributes to taking Ultram. One blood culture is growing Staph Aureus. Will re-draw blood cultures now. Was started on Vancomycin IV. Continue to avoid Ultram as it appears patient had a significant adverse reaction. Will use Tylenol for pain control Continue to monitor blood sugars as he continues to be low. Continue on D5 1/2 IV fluids. All home diabetes medications and insulin remain on hold. Encourage PO intake. Continue to follow electrolytes Overall mentation appears to be improving
[2017-12-13] MEDS: --POM--METOPROLOL TARTRATE 100mg TABLET PO SCH ×2 (11:12→17:20)
[2017-12-13] MEDS: --POM--LISINOPRIL 20 MG TABLET PO SCH ×2 (11:13→20:55)
[2017-12-13] MEDS: SOTALOL 80 MG PO SCH ×2 (11:13→20:58)
[2017-12-13] MEDS: ENOXAPARIN 40 MG/0.4 ML INJECTION SQ SCH (11:15)
[2017-12-13] MEDS: CALCITONIN NASAL SPRAY 3.7ml NS SCH (12:43)
[2017-12-13] MEDS: ACETAMINOPHEN 500 MG TABLET PO SCH ×3 (12:44→20:54)
[2017-12-13] MEDS ORDERED: FALL RISK - PHARMACY CONSULT XX ONE (15:55)
[2017-12-13] MEDS: --POM--QUETIAPINE 50 MG TABLET PO SCH (20:56)
[2017-12-13] MEDS ORDERED: HYDROCODONE/APAP 5mg/325mg TABLET PO PRN (23:38)
[2017-12-14] MEDS: ACETAMINOPHEN 500 MG TABLET PO SCH ×6 (01:05→16:45)
[2017-12-14] MEDS: --POM--LEVOTHYROXINE 125 MCG TABLET PO SCH (06:16)
[2017-12-14 07:54] VITALS: BP 163/84; RESP 26; TEMP 96.5; O2SAT 97
[2017-12-14] MEDS ORDERED: INSULIN ASPART 100unit/ml INJECTION SQ SCH ×3 (08:13→17:00)
[2017-12-14] MEDS: --POM--METOPROLOL TARTRATE 100mg TABLET PO SCH (09:03)
[2017-12-14] MEDS: CALCITONIN NASAL SPRAY 3.7ml NS SCH (09:04)
[2017-12-14] MEDS: ENOXAPARIN 40 MG/0.4 ML INJECTION SQ SCH (09:05)
[2017-12-14] MEDS: --POM--LISINOPRIL 20 MG TABLET PO SCH (09:05)
[2017-12-14] MEDS: SOTALOL 80 MG PO SCH (09:06)
[2017-12-14 09:07] VITALS: PULSE 78
--- NOTE | 2017-12-14 13:29 | Pharmacy Consult-Antibiotics ---
Pharmacy Consult-Vancomycin - Laboratory Information WBC 7.5 T/MM3 (4.5-11.0) 12/14/17 04:23 BUN 15.0 MG/DL (9-20) 12/14/17 04:23 Creatinine 1.3 mg/dL (0.8-1.5) D 12/14/17 04:23 - Consult Information VANCOMYCIN SHORT REVIEW: Today's S Cr = 1.3 mg/dL. Calculated Cr Cl = 52 mL/min The renal function has improved and the current Vancomycin dose and frequency indicates that the Vancomycin level would be below 13 so I ams changing the vancomycin to 1,500 mg iv every 18 hours. The indicated trouugh is aroung 19 mcg/mL. The pharmacy will continue to monitor the vancomycin levels and renal clearance, and will adjust the Vancomycin accordingly. Thank you for the Vancomycin Protocol, Akash Álvarez, Pharmacist.
--- NOTE | 2017-12-14 13:42 | Progress Note ---
- Date 12/14/17 Subjective: F/U: Encephalopathy Doing well today. Mentation at baseline-thinking clearly, talking and interacting well. Feels strength and stability at baseline. Breathing well-not SOA or congested. No chest pain. Eating well-no nausea or ab pain. Dr Mendiola adjusted insulin doses to help decrease risk of hypoglycemia. No f/c. Feels ready to go home. Objective Vital signs: Temperature 96.5 F L 12/14/17 07:53 Pulse Rate 78 12/14/17 09:06 Respiratory Rate 26 H 12/14/17 07:53 Blood Pressure 163/84 H 12/14/17 07:53 Pulse Oximetry 97 12/14/17 07:53 Height/Weight/BMI: Height 1.78 m Weight 107.5 kg Body Mass Index 33.7 - Constitutional Present: no acute distress, well nourished, well developed, obese, cooperative. Absent: combative, agitated, somnolent - Routine HEENT Exam Head: Present: normocephalic, atraumatic Eye: Present: EOMI, PERRL ENT: Present: mucous membranes moist - Routine Respiratory Exam Present: decreased breath sounds. Absent: rales, respiratory distress, rhonchi , wheezes, crackles - Routine Cardiovascular Exam Present: RRR, no murmur - Routine Abdominal Exam Present: soft, normoactive bowel sounds, non distended, non tender - Routine Extremities Exam Present: no edema, pulses intact. Absent: cyanosis, clubbing - Routine Musculoskeletal Exam Musculoskeletal: Present: no clubbing or cyanosis, normal strength - Routine Skin Exam Present: dry, warm - Routine Neurological Exam Present: alert, oriented X3, CN II-XII intact, moving all extremities, vision grossly intact, hearing grossly intact, normal speech. Absent: motor deficit, altered mental status - Routine Psychiatric Exam Present: normal affect, normal thought process, cooperative. Absent: anxious, agitated Results - Labs CBC & Chem 7: 12/14/17 04:23 12/14/17 04:23 Microbiology Results: Microbiology 12/13/17 10:05 Peripheral/Iv Start Blood Culture - Preliminary No Growth After 1 Day 12/13/17 10:00 Peripheral/Iv Start Blood Culture - Preliminary No Growth After 1 Day Assessment and Plan (1) Encephalopathy Current visit: Yes Status: Acute Assessment and Plan: Impression Acute encephalopathy - resolved Suspect combination of tramadol and hypoglycemia Hypoglycemia (POA) Hypernatremia (POA) Hypokalemia- not POA Positive blood culture - suspect contamination Recent fall T12-L2 compression fracture Type II diabetes Coronary artery disease Hypertension Dyslipidemia Stage III CKD Keratosis Obesity with BMI 33.[address] Mendiola adjusted insulin: Levemir decreased to 80 units at night. Mealtime insulin decrease to 5 units with breakfast and 18 units with lunch and supper. Recommends holding saxagliptin. Will need to monitor blood sugars and notify office in 1 week. Also Synthroid increased from 0.125mg to 0.137mg as TSH still with elevation. Repeat BC without growth. WBC normalized prior initiation of vancomycin. No temp elevations or signs suggestive of sepsis. Most likely the positive BC contaminant. Can discontinue IVF as taking oral well. Mentation at baseline - no episodes of confusion or behaviors. Will continue with Miacalcin to help fracture pain. Avoid narcotics secondary to his encephalopathy with tramadol. Could try OTC Lidoderm type patch to help local pain. Can discharge to home. Follow up with Dr Aguayo in 1 week F/U with Dr Mendiola as scheduled. Will need to call in blood sugars to Dr Mendiola's office in 1 week. See orders for details. DVT Prophylaxis: Lovenox Resuscitation Status: Full Code - Physician Narrative Physician: Arden Slaughter MD Narrative: Date: 12/14/17 Time: 1339 Hospital Course Summary Disclaimer: The visit summary below is not to be considered part of the above Progress Note. Hospital Course: 12/12/[address] patient in outpatient observation under care of Dr. Slaughter for acute encephalopathy with unknown etiology. Suspect etiology could be multifactorial. May be related to dehydration, initiation of pain medication as patient did start tramadol yesterday 12/11 for back pain. It is unclear if patient has been taking his medications accurately. May be related to underlying cognitive decline. Will plan to hold off on Onglyza as this may be causing hypoglycemia. Also hold on insulin. Will monitor Accu-Cheks closely. At time of admission patient continues to be quite combative during examination and nursing cares. Haldol and Ativan available as needed. Suspect he will require one-on-one staffing for patient safety. Unfortunately, we are unable to obtain an MRI of the brain to rule out intracranial infarct given. Patient does have a pacemaker. Once further medical rule out has been completed. May need to consider obtaining durable power of diamond sander which is . Will hold off Ultram as this may be causing encephalopathy. SCDs to bilateral lower extremity for DVT prophylaxis. Will check CBC, BMP, hemoglobin A1c tomorrow morning to follow blood counts, renal function and electrolytes. At time of discharge medical care will return to primary care provider, Dr Aguayo. 12/13/17 Encephalopathy appears to be improving. Patient contributes this to his taking Ultram. One blood culture is growing Staph Aureus. Will re-draw blood cultures now. Was started on Vancomycin IV. Continue to avoid Ultram as it appears patient had a significant adverse reaction. Will use Tylenol for pain control. Continue to monitor blood sugars as he continues to be low. Continue on D5 1/2 IV fluids. All home diabetes medications and insulin remain on hold. Encourage PO intake. Continue to follow electrolytes. Overall mentation appears to be improving. Consult PT/OT for functional evaluation. Will consult Dr Mendiola for adjustments of home insulin regimen due to hypoglycemia noted. 12/14/17 Dr Mendiola adjusted insulin: Levemir decreased to 80 units at night. Mealtime insulin decrease to 5 units with breakfast and 18 units with lunch and supper. Recommends holding saxagliptin. Will need to monitor blood sugars and notify office in 1 week. Also Synthroid increased from 0.125mg to 0.137mg as TSH still with elevation. Repeat BC without growth. WBC normalized prior initiation of vancomycin. No temp elevations or signs suggestive of sepsis. Most likely the positive BC contaminant. Can discontinue IVF as taking oral well. Mentation at baseline - no episodes of confusion or behaviors. Will continue with Miacalcin to help fracture pain. Avoid narcotics secondary to his encephalopathy with tramadol. Could try OTC Lidoderm type patch to help local pain. Can discharge to home. Follow up with Dr Aguayo in 1 week F/U with Dr Mendiola as scheduled. Will need to call in blood sugars to Dr Mendiola's office in 1 week. See orders for details.
--- NOTE | 2017-12-14 15:45 | Discharge Summary ---
Discharge Information Date of admission: 12/12/17 14:54 Anticipated date of discharge: 12/14/17 Attending Physician: Arden Slaughter MD Primary care physician: Eber Aguayo II, MD Consults: Physician Consult: Juan Mendiola Reason For Exam: assistance with glycemic control PT/OT - Discharge Diagnosis (1) Encephalopathy Status: Acute Discharge diagnosis Acute encephalopathy - resolved Suspect combination of tramadol and hypoglycemia Associated conditions and complications Hypoglycemia (POA) Hypernatremia (POA) Hypokalemia- not POA Positive blood culture - suspect contamination Recent fall T12-L2 compression fracture Type II diabetes Coronary artery disease Hypertension Dyslipidemia Stage III CKD Keratosis Obesity with BMI 33.8 - Laboratory Labs: Admit Lab 12/12/17 10:34 WBC 12.1 H Hgb 15.6 Hct 46.7 MCV 92.7 Plt Count 156 Neut % (Auto) 71.4 H [place] % (Auto) 8.9 Eos % (Auto) 1.2 Baso % (Auto) 0.2 Admit Lab 12/12/17 10:34 Sodium 147 H Potassium 3.9 Chloride 111 H Carbon Dioxide 21 L Anion Gap 15 BUN 20.0 Creatinine 1.8 H GFR Calculation 36 BUN/Creatinine Ratio 11 Glucose 119 H Calculated Osmolality 286 H Calcium 8.9 Total Bilirubin 2.70 H Icterus Index < 2 AST 35 ALT 25 Alkaline Phosphatase 81 Ammonia < 9 L Troponin I 0.025 Total Protein 7.3 Albumin 4.1 Globulin 3.2 Albumin/Globulin Ratio 1.3 TSH and A1c 12/12/17 12/13/17 10:34 05:02 Hemoglobin A1c 6.6 H TSH 5.07 H 12/14/17 04:23 12/14/17 04:23 - Microbiology Microbiology 12/13/17 10:05 Peripheral/Iv Start Blood Culture - Preliminary No Growth After 1 Day 12/13/17 10:00 Peripheral/Iv Start Blood Culture - Preliminary No Growth After 1 Day - Radiology Radiology: Date of Exam: 12/12/17 Type of Exam: XR chest 1V FINDINGS: The lungs are clear. There is no abnormal airspace opacity, pleural effusion or pneumothorax identified. The heart size and mediastinum are stable with a left pacemaker. IMPRESSION: No acute cardiopulmonary abnormality. Date of Exam: 12/12/17 Type of Exam: CT head/brain wo con FINDINGS: Mild generalized atrophy. The ventricles are of normal size, shape, and contour for the patient's age. There are scattered areas of low attenuation in the white matter which most likely represent changes from chronic microvascular ischemia. The brainstem, cerebellum, and cerebral hemispheres otherwise have a normal morphology and CT attenuation. There is no evidence of midline displacement. No hemorrhage, signs of acute territorial stroke, mass effect, mass lesions, or edema is evident. The visualized portions of the skull base, midface, and calvarium demonstrate no abnormality. The paranasal sinuses are well aerated and free of significant disease. The tympanic and mastoid cavities appear normal. IMPRESSION: No acute intracranial abnormality or hemorrhage. History of Present Illness HPI: Drake is an 82-year-old male who resides independently at home with his , Basilia. This morning at approximately 830 a.m. she found him to be standing in the room, confused and unable to answer verbal questioning. She was concerned that he was hypoglycemic and called EMS, they found patient to have a blood sugar of 64. EMS gave patient one amp of dextrose blood sugar improved to 233, however patient remained combative. He was then transferred to [facility] emergency room for further medical evaluation and treatment. Laboratory studies were obtained, patient found have mild leukocytosis with white count at 12.1. Chemistry panel reviewed hypernatremia, sodium of 147, potassium 3.9, creatinine 1.8. While in the emergency room. Glucose did dip down to 58 and patient received another amp of dextrose. Troponin was negative, TSH 5.04. Urinalysis is unremarkable. Toxicology is positive for opiates and tricyclic antidepressants. CT scan of the head showed no intracranial abnormalities or hemorrhages, chest x-ray is unremarkable Patient received multiple medications well in the emergency room including Ativan 4 milligrams, Haldol 2 milligrams, morphine 2 milligrams, ketamine 100 milligrams. Given continued encephalopathy and combativeness , the hospitalist services were contacted and accepted patient for outpatient admission for further evaluation and treatment. Additional history is obtained from at the bedside. She does report that patient has had difficulty with managing his blood sugars over the last week or 2 having hypoglycemia at times. Last Thursday (12/07/17) during the night he fell and has complained of low back pain since that time. He did have outpatient x- rays done yesterday that revealed a T12 - L2 compression fracture. He was started on tramadol for pain control by primary care, Dr. Aguayo. thinks that patient took 2 tablets for pain control since having them filled yesterday. Patient is normally alert, oriented and manages all his own medications at home, is in clear of what medications he takes and for what chronic problems. reports he does have some "mood swings" and she does relate this to potential hypoglycemic episodes. We did discuss advanced directives and patient does wish to be a full code unless he would be in a vegetative state at which time she would opt for him to be a do not resuscitate. For complete details of the H&P refer to that document. Objective Vital signs: Temperature 96.5 F L 12/14/17 07:53 Pulse Rate 78 12/14/17 09:06 Respiratory Rate 26 H 12/14/17 07:53 Blood Pressure 163/84 H 12/14/17 07:53 Pulse Oximetry 97 12/14/17 07:53 Height/Weight/BMI: Height 1.78 m Weight 107.5 kg Body Mass Index 33.7 Hospital Course This is a general summary of the patient's hospital course. For more details refer to the complete medical record. Hospital course: 12/12/[address] patient in outpatient observation under care of Dr. Slaughter for acute encephalopathy with unknown etiology. Suspect etiology could be multifactorial. May be related to dehydration, initiation of pain medication as patient did start tramadol yesterday 12/11 for back pain. It is unclear if patient has been taking his medications accurately. May be related to underlying cognitive decline. Will plan to hold off on Onglyza as this may be causing hypoglycemia. Also hold on insulin. Will monitor Accu-Cheks closely. At time of admission patient continues to be quite combative during examination and nursing cares. Haldol and Ativan available as needed. Suspect he will require one-on-one staffing for patient safety. Unfortunately, we are unable to obtain an MRI of the brain to rule out intracranial infarct given. Patient does have a pacemaker. Once further medical rule out has been completed. May need to consider obtaining durable power of admitted attorneys which is . Will hold off Ultram as this may be causing encephalopathy. SCDs to bilateral lower extremity for DVT prophylaxis. Will check CBC, BMP, hemoglobin A1c tomorrow morning to follow blood counts, renal function and electrolytes. At time of discharge medical care will return to primary care provider, Dr Aguayo. 12/13/17 Encephalopathy appears to be improving. Patient contributes this to his taking Ultram. One blood culture is growing Staph Aureus. Will re-draw blood cultures now. Was started on Vancomycin IV. Continue to avoid Ultram as it appears patient had a significant adverse reaction. Will use Tylenol for pain control. Continue to monitor blood sugars as he continues to be low. Continue on D5 1/2 IV fluids. All home diabetes medications and insulin remain on hold. Encourage PO intake. Continue to follow electrolytes. Overall mentation appears to be improving. Consult PT/OT for functional evaluation. Will consult Dr Mendiola for adjustments of home insulin regimen due to hypoglycemia noted. 12/14/17 Dr Mendiola adjusted insulin: Levemir decreased to 80 units at night. Mealtime insulin decrease to 5 units with breakfast and 18 units with lunch and supper. Recommends holding saxagliptin. Will need to monitor blood sugars and notify office in 1 week. Also Synthroid increased from 0.125mg to 0.137mg as TSH still with elevation. Repeat BC without growth. WBC normalized prior initiation of vancomycin. No temp elevations or signs suggestive of sepsis. Most likely the positive BC contaminant. Can discontinue IVF as taking oral well. Mentation at baseline - no episodes of confusion or behaviors. Will continue with Miacalcin to help fracture pain. Avoid narcotics secondary to his encephalopathy with tramadol. Could try OTC Lidoderm type patch to help local pain. Can discharge to home. Follow up with Dr Aguayo in 1 week F/U with Dr Mendiola as scheduled. Will need to call in blood sugars to Dr Mendiola's office in 1 week. See orders for details. Time spent with patient: discharge greater than 30 minutes Resuscitation Status: Full Code Discharge Plan - Discharge Disposition Discharge Date: 12/14/17 Disposition: 01 Discharged Home, Self-Care *Condition: Stable Reason For Visit (Visit label in EMR): Hypoglycemia - Discharge Medications *Discharge Medications: New Calcitonin Nasal [place] [Miacalcin [place]] 1 spray NS DAILY bottle Levothyroxine Tab [Synthroid] 137 mcg PO ACB #30 tab Continue Quetiapine [Seroquel] 50 mg PO HS Metoprolol Tartrate 100 mg PO BID Insulin Aspart [Novolog Flexpen] 1 dose SQ TIDWM #0 Lisinopril [Prinivil] 20 mg PO BID sotalol 80 mg tablet 80 mg PO BID tab Changed Insulin Glargine,Hum.rec.anlog [Toujeo Solostar] 80 unit SQ HS #0 ml Simvastatin 40 mg PO HS #0 Discontinued Tramadol [Ultram] 50 mg PO Q6H PRN PRN Reason: Pain saxagliptin 2.5 mg tablet 2.5 mg PO QAM levothyroxine 125 mcg tablet 125 mcg PO QAM #90 tab - Discharge Packet/Instructions *Diet: 2000 KCAL ADA low sodium *Activity: As tolerated *Pain Management/Treatment: Tylenol as needed for pain. Micalcin nasal spray may help pain - use 1 spray to alternating nostrils once a day. Could try over the counter Lidoderm patch locally for discomfort. *Wound Care: n/a Additional Instructions: Decreased Toujeo dose to 80 units at night. Mealtime insulin doses: 5 units with breakfast and 18 units with lunch and evening meal. STOP saxagliption - monitor sugars. Call in your blood sugars to Dr Mendiola in 1 week. Increase Synthroid (thyroid mediaction) to 0.137mg daily (current dose 0.125mg - stop this dose). Take simvastatin before bed for maximum effect. *Expected Signs/Symptoms: Resolution of confusion. Improvement of blood sugars. *Notify Physician if: Temp >100.4. Increasing pain. Problems with blood sugars. *During Business Hours Contact: Dr Aguayo or Dr Mendiola *After Business Hours Contact: Call [facility] and have your care provider contacted. *Pending Lab/Results: No Pending Lab - Referrals/Follow Up *Referrals/Follow Up: Eber Aguayo II, MD [Family Provider] - 1 Week (Hospital follow up - encephalopathy secondary to tramdol and hypoglycemia. ) Juan Mendiola MD [Physician] - (Call in blood sugars to Dr Mendiola in 1 week. Keep previously scheduled apt. ) - Patient Handouts - Dismissal Complete Discharge Instructions are:: Complete Physician Narrative - Narrative Physician: Arden Slaughter MD Attestation Narrative: Date: 12/14/17 Time: 1544 I have independently interviewed and examined patient prior to discharge. See my progress note from today for details. Medically stable for discharge to home.
--- NOTE | 2017-12-14 16:17 | Consultation ---
DATE OF CONSULT 12/14/2017 REASON FOR CONSULTATION Hypoglycemia. HISTORY OF PRESENT ILLNESS The patient is an 82-year-old male who lives at home with his . He was in his usual state of health until December 07 when he tripped over a flower pot at night and fell. He developed back pain and went to see Dr. Aguayo on 2017 who found compression fractures from T12 through L2 and prescribed tramadol for pain management. His states that after using the tramadol he was not as mentally alert as he usually is and he admits to me that on the morning of admission he took 20 units of NovoLog instead of 5 units that he normally does. He has a history of type 2 diabetes mellitus since 1996 with some associated peripheral neuropathy. He also is known to have some mild chronic kidney disease. When I last saw him in the office he was supposed to have been taking 80 units of Toujeo at bedtime and 5 units NovoLog for breakfast , 20 units for lunch and supper. He reports, however, that in addition to taking the extra NovoLog for unclear reasons on the morning of admission he also has been using 100 units of Toujeo instead of 80. His thought that he might be hypoglycemic and called EMS. His blood sugar was reportedly 64. He was given 1 ampule of D50 and blood sugar rosa to 233 but he remained somewhat combative. He was brought to [facility] for further evaluation. He was seen to have a glucose dip down to 58 so he received another amp of D50. He also was found to have a TSH of 5.04. He was admitted to the hospitalist service for further evaluation and treatment. According to his he has had some difficulty with hypoglycemia for a couple of weeks prior to admission. On the morning of my visit he seems to be a little more clear mentally although he still has a little trouble with the timeline of his medication changes. ALLERGIES Unknown antibiotic. PAST MEDICAL HISTORY/PAST SURGICAL HISTORY Hypertension. Hypothyroidism. Pacemaker. Cancer of the bladder, prostate and colon. Status post partial colectomy. Cholecystectomy. Thyroidectomy in 2006. Compression fracture of the spine. FAMILY HISTORY Hypertension, hypothyroidism and stroke. SOCIAL HISTORY The patient does not drink alcohol. He quit smoking 16 years ago. REVIEW OF SYSTEMS As from the History of Present Illness, he has no change in weight, fatigue, chest pain, palpitations, diarrhea, constipation or paresthesias. PHYSICAL EXAMINATION VITAL SIGNS: BP 163/84, pulse 69, respirations 26. GENERAL: Well-developed, obese male alert, oriented, and in no acute distress. HEENT: Unremarkable. NECK: Without thyromegaly. LUNGS: Clear. HEART: Regular rate and rhythm without murmur. ABDOMEN: Normal bowel sounds. Soft, nontender. EXTREMITIES: Without edema. NEUROLOGIC: Absent grated filament sensation in the right third metatarsal head. LABORATORY Glucose over the previous 24 hours was 184, 186, 191, 200. Fasting this morning 128. HgA1c 6.6. TSH 5.07. ASSESSMENT 1. Type 2 diabetes mellitus, too tightly controlled. 2. Hypoglycemia due to insulin. Certainly, his inadvertently taking four times his usual morning dose contributed to this. 3. Acute encephalopathy, probably from tramadol. 4. Postsurgical hypothyroidism, running slightly hypothyroid. 5. Hypertension. 6. Hyperlipidemia. 7. Long-term current insulin use. RECOMMENDATIONS Resume insulin at 5 units q.a.m. and 18 units q. lunch and supper for NovoLog in order to avoid provoking hypoglycemia. Resume Toujeo at 80 units q.h.s. for same reason. Hold Onglyza for now. Increase Synthroid from 125-137 mcg q.a.m. Further insulin titration can be done as an outpatient. I believe he already has a followup appointment to see me on February 10 but he can certainly call in blood sugars in a week for further adjustment. Thank you very much for asking me to assist in caring for this nice gentleman. I will follow him along with you while he remains in the hospital. EVELIN
[2017-12-14] MEDS ORDERED: INSULIN GLARGINE 100unit/ml INJECTION SQ SCH (21:00)
[2017-12-15] MEDS ORDERED: LEVOTHYROXINE 137 MCG TABLET PO SCH (06:30)
[2017-12-15] MEDS ORDERED: INSULIN ASPART 100unit/ml INJECTION SQ SCH (08:12)
== END 2017-12-14 16:32 | disposition home or self-care (01) ==
LOC: ED 09:04 → MED 09:04
PROVIDERS: ADMIT Hospitalist; ATTEND Hospitalist